=== PATIENT | male | born 1985 | race African-American/Black ===

== ENCOUNTER 2016-10-20 10:10 | Emergency (ER) | payer OTHER ==
[~2016-10-20] VITALS: Ht 180.3 cm; Wt 75.0 kg
[~2016-10-20 10:10] MED LIST: CYCL1TAB29 PO; DICL50TA3 PO
[2016-10-20 10:11] VITALS: BP 140/77; PULSE 82; RESP 20; TEMP 98.1; O2SAT 98
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
[2016-10-20] MEDS ORDERED: IBUP800T23 PO (11:50)
[2016-10-20] MEDS ORDERED: ORPH100T99 PO (11:50)
[2016-10-20] MEDS ORDERED: EXTR500C PO (11:50)
[2016-10-20 11:53] VITALS: BP 135/87
== END 2016-10-20 11:53 | disposition home or self-care (01) ==
LOC: NETRI 10:10
DX: S29.012A Strain of muscle and tendon of back wall of thorax, initial encounter (principal); V49.40XA Driver injured in collision with unspecified motor vehicles in traffic accident, initial encounter; Y92.488 Other paved roadways as the place of occurrence of the external cause
CPT/HCPCS: 99283

== ENCOUNTER 2017-09-20 16:08 | Emergency (ER) | payer SELFPAY ==
[~2017-09-20] VITALS: Ht 180.3 cm; Wt 70.0 kg
[~2017-09-20 16:08] MED LIST changes: -CYCL1TAB29 PO; -DICL50TA3 PO; +EXTR500C PO; +IBUP1TAB7 PO; +ORPH100T2 PO
[2017-09-20 16:25] VITALS: BP 111/63; PULSE 86; RESP 16; TEMP 98.4; O2SAT 98
[2017-09-20] MEDS ORDERED: CEPH-460 PO (17:02)
[2017-09-20] MEDS ORDERED: IBUP-232 PO (17:02)
--- NOTE | 2017-09-20 17:03 | PD ---
HPI Chief Complaint: Laceration/Skin Injury Time Seen by Provider: 16:54 Travel History International Travel<30 days: No Contact w/Intl Traveler<30days: No Traveled to known affect area: No History of Present Illness HPI 32 year old male presents to the emergency department for evaluation of a laceration to his right hand that occurred approximately 10 mins prior to arrival. Patient states he was using a knife when his dog scared him, causing him to cut his right medial volar hand. Patient states his tetanus immunization was 3-4 years ago. Current pain is 9/10, aching, without radiation. Moderate severity. PFSH Past Medical History Hx Anticoagulant Therapy: No Heart Rhythm Problems: Yes (IRREGULAR HEART BEAT) Cardiovascular Problems: No Chemotherapy: No Cerebrovascular Accident: No Diabetes: No Diminished Hearing: No Respiratory: Yes (CHRONIC BRONCHITIS) Past Surgical History Hysterectomy: No Social History Alcohol Use: Yes (SOCIALLY) Tobacco Use: Yes Substance Use: No Allergies-Medications (Allergen,Severity, Reaction): Coded Allergies: shellfish derived (Unverified Allergy, Severe, SWELLING SOB, 09/20/17) Reported Meds & Prescriptions Reported Meds & Active Scripts Active Keflex (Cephalexin) 500 Mg Capsule 500 Mg PO Q8H 7 Days Ibuprofen 600 Mg Tab 600 Mg PO TID PRN Review of Systems Except as stated in HPI: all other systems reviewed are Neg Physical Exam Narrative GENERAL: Well-nourished, well-developed male patient, afebrile. SKIN: Focused skin assessment warm/dry. Patient has a 3 cm laceration to the volar aspect of the right hand on the medial side. HEAD: Normocephalic. Atraumatic. EYES: No scleral icterus. No injection or drainage. NECK: Supple, trachea midline. No JVD or lymphadenopathy. CARDIOVASCULAR: Right radial pulse 2+. RESPIRATORY: No accessory muscle use. MUSCULOSKELETAL: No cyanosis, or edema. Patient has full flexion-extension of all digits of the right hand. Strength in all digits is 5/5. Data Data Last Documented VS Vital Signs Date Time Temp Pulse Resp B/P (MAP) Pulse Ox O2 Delivery O2 Flow Rate FiO2 09/20/17 16:25 98.4 86 16 111/63 (79) 98 Orders Orders Lidocaine 1% Inj (Xylocaine 1% Inj) (09/20/17 17:15) Ed Discharge Order (09/20/17 17:42) [facility] Medical Decision Making Medical Screen Exam Complete: Yes Emergency Medical Condition: Yes Medical Record Reviewed: Yes Differential Diagnosis Laceration versus abrasion versus tendon laceration Narrative Course 32-year-old male presents to the emergency department for evaluation of a laceration to the right hand that occurred just prior to arrival. Bleeding is controlled on exam. Patient is verbal consent for laceration repair. Patient is instructed on proper wound care. He'll be discharged with a prescription for ibuprofen and Keflex. The patient was discharged in stable condition with instructions, including return instructions and follow up instructions. Procedures Procedure Narrative LACERATION LOCATION: Right hand LENGTH: 3 cm NUMBER OF STITCHES/BRADLEY: 5 simple interrupted sutures REPAIR: The area of the laceration was prepped with Betadine and sterilely draped. The laceration was infiltrated with 1% lidocaine. The wound was copiously irrigated and explored without evidence of foreign body, tendon injury or neurovascular injury. The wound was closed using 4-0 Prolene. This was a single layer repair. A sterile dressing was applied. The patient was advised to keep the dressing clean and dry. Patient tolerated the procedure well. Diagnosis Primary Impression: Laceration of right hand Qualified Codes: S61.411A - Laceration without foreign body of right hand, initial encounter Referrals: Primary Care Physician call for appointment Patient Instructions: Care For Your Stitches (ED), General Instructions, Laceration (ED) Additional Instructions: Clean twice daily with soap and water and apply [id number] antibiotic ointment. Keep clean and dry. No swimming or hot tubs until laceration is healed. Take antibiotic as directed until gone. Take ibuprofen as instructed as needed with food for pain. Suture removal in 7-10 days. You may follow up with your primary care physician or return to the emergency department for this. Return to the emergency department for any acute worsening of symptoms. Med/Other Pt SpecificInfo: Prescription(s) given Scripts Cephalexin (Keflex) 500 Mg Capsule 500 MG PO Q8H for Infection for 7 Days, #21 CAP 0 Refills Prov: Esperanza Flor 09/20/17 Ibuprofen (Ibuprofen) 600 Mg Tab 600 MG PO TID Y for PAIN SCALE 1 TO 10, #21 TAB 0 Refills Prov: Esperanza Flor 09/20/17 Disposition: 01 DISCHARGE HOME Condition: Stable Esperanza Flor Sep 20, 2017 17:03
[2017-09-20] MEDS ORDERED: LIDOCAINE HCL 1% 20 ML VIAL INFIL ONE (17:15)
== END 2017-09-20 17:58 | disposition home or self-care (01) ==
LOC: NEPK 16:08
DX: S61.411A Laceration without foreign body of right hand, initial encounter (principal); W26.0XXA Contact with knife, initial encounter; Z72.0 Tobacco use; Z91.013 Allergy to seafood
CPT/HCPCS: 12002

== ENCOUNTER 2017-09-26 19:15 | Emergency (ER) | payer SELFPAY ==
[~2017-09-26 19:15] MED LIST changes: +CEPH-460 PO; -EXTR500C PO; +IBUP-232 PO; -IBUP1TAB7 PO; -ORPH100T2 PO
[2017-09-26 19:39] VITALS: BP 103/57; PULSE 78; RESP 16; TEMP 98.4; O2SAT 98
--- NOTE | 2017-09-26 21:20 | PD ---
HPI Chief Complaint: Laceration/Skin Injury Time Seen by Provider: 19:38 Travel History International Travel<30 days: No Contact w/Intl Traveler<30days: No Traveled to known affect area: No History of Present Illness HPI 32-year-old male presents emergency department for evaluation of a laceration in his right hand. Patient had sutures placed about a week ago. The wound has dehisced. Reports moderate pain at the site would like the wound repaired with sutures removed. No fever chills. No other symptoms to report. PFSH Past Medical History Hx Anticoagulant Therapy: No Heart Rhythm Problems: Yes (IRREGULAR HEART BEAT) Cardiovascular Problems: No Chemotherapy: No Cerebrovascular Accident: No Diabetes: No Diminished Hearing: No Respiratory: Yes (CHRONIC BRONCHITIS) Past Surgical History Hysterectomy: No Social History Alcohol Use: Yes (SOCIALLY) Tobacco Use: Yes Substance Use: No Allergies-Medications (Allergen,Severity, Reaction): Coded Allergies: shellfish derived (Unverified Allergy, Severe, SWELLING SOB, 09/30/17) Reported Meds & Prescriptions Reported Meds & Active Scripts Active Keflex (Cephalexin) 500 Mg Capsule 500 Mg PO Q8H 7 Days Ibuprofen 600 Mg Tab 600 Mg PO TID PRN Review of Systems Except as stated in HPI: all other systems reviewed are Neg Physical Exam Narrative This is a well-nourished male patient ambulatory with a nonantalgic gait. Patient has a 3 cm laceration on the dorsal aspect of the right hand. There are some sutures intact, others are torn. Mild erythema surrounding the site. He has regular heart rate. Even respirations. Moves all extremities without difficulty. Data Data Last Documented VS [facility] Medical Decision Making Medical Screen Exam Complete: Yes Emergency Medical Condition: Yes Medical Record Reviewed: Yes Differential Diagnosis Suture removal versus wound dehiscence versus infected wound versus healing wound Narrative Course 32-year-old male presents emergency department for evaluation wound in his right hand. Patient appears without distress. Exam is initiated in triage. Prior to bed placement, patient leaves AGAINST MEDICAL ADVICE. AMA: The risks of leaving against medical advice without further evaluation treatment were discussed with the patient. These risks include cardiac dysfunction, cardiac dysrhythmia, possible heart attack, possible stroke or . The patient indicated understanding of these risks and appeared to have the capacity to make this decision. Diagnosis Primary Impression: Encounter for wound re-check Disposition: AGAINST MEDICAL ADVICE Condition: Stable Ronit Landaverde Sep 26, 2017 21:20
== END 2017-09-26 21:15 | disposition left against medical advice (07) ==
LOC: NED 19:15
DX: Z00.00 Encounter for general adult medical examination without abnormal findings (principal)
CPT/HCPCS: 99281

== ENCOUNTER 2017-09-30 13:14 | Emergency (ER) | payer SELFPAY ==
[~2017-09-30] VITALS: Ht 180.3 cm; Wt 78.0 kg
[2017-09-30 14:42] VITALS: BP 115/56; PULSE 72; RESP 16; TEMP 98.4; O2SAT 99
[2017-09-30 14:51] VITALS: BP 122/63; PULSE 69; RESP 16; TEMP 98.4; O2SAT 98
--- NOTE | 2017-09-30 17:30 | PD ---
HPI Chief Complaint: Laceration/Skin Injury Time Seen by Provider: 17:20 Travel History International Travel<30 days: No Contact w/Intl Traveler<30days: No Traveled to known affect area: No History of Present Illness HPI 32-year-old -Japanese male previously seen for laceration to the right lateral palm, with sutures placed. Patient returned 3 days ago and had sutures removed. Since that time the wound has started to heal by secondary intention. Patient is here for reevaluation and possible closure, as he states when he works it breaks open and bleeds. Patient is allergic to shellfish. PFSH Past Medical History Hx Anticoagulant Therapy: No Heart Rhythm Problems: Yes (IRREGULAR HEART BEAT) Cardiovascular Problems: No Chemotherapy: No Cerebrovascular Accident: No Diabetes: No Diminished Hearing: No Respiratory: Yes (CHRONIC BRONCHITIS) Past Surgical History Hysterectomy: No Social History Alcohol Use: Yes (SOCIALLY) Tobacco Use: Yes Substance Use: No Allergies-Medications (Allergen,Severity, Reaction): Coded Allergies: shellfish derived (Unverified Allergy, Severe, SWELLING SOB, 09/30/17) Reported Meds & Prescriptions Reported Meds & Active Scripts Active Keflex (Cephalexin) 500 Mg Capsule 500 Mg PO Q8H 7 Days Ibuprofen 600 Mg Tab 600 Mg PO TID PRN Review of Systems Except as stated in HPI: all other systems reviewed are Neg General / Constitutional: No: Fever Eyes: No: Visual changes HENT: No: Headaches Cardiovascular: No: Chest Pain or Discomfort Respiratory: No: Shortness of Breath Gastrointestinal: No: Abdominal Pain Genitourinary: No: Dysuria Musculoskeletal: No: Pain Skin: No Rash Neurologic: No: Weakness Psychiatric: No: Depression Endocrine: No: Polydipsia Hematologic/Lymphatic: No: Easy Bruising Physical Exam Narrative GENERAL: Patient appears in no acute distress per SKIN: Warm and dry. Normal color. Normal turgor. Patient has a 2 cm dehisced laceration to the right lateral palm with no erythema or purulent drainage. The wound appears dry. MUSCULOSKELETAL: Extremities without clubbing, cyanosis, or edema. No obvious deformities. NEUROLOGICAL: Awake and alert. No obvious cranial nerve deficits. Motor grossly within normal limits. Five out of 5 muscle strength in the arms and legs. Normal speech. Data Data Last Documented VS Vital Signs Date Time Temp Pulse Resp B/P (MAP) Pulse Ox O2 Delivery O2 Flow Rate FiO2 09/30/17 14:51 98.4 69 16 122/63 82 98 MDM Medical Decision Making Medical Screen Exam Complete: Yes Emergency Medical Condition: Yes Medical Record Reviewed: Yes Differential Diagnosis Laceration right palm. Wound check. Wound dehiscence Narrative Course I explained to the patient and his girlfriend, that the wound has to heal by secondary intention at this time. There is no sign of infection, or need for further medical treatment other than keeping it protected and allowing to heal. Both the patient and his girlfriend became upset and chose to leave without further medical treatment. Disposition: 07 AGAINST MEDICAL ADVICE Condition: Stable Richardson Galvan Sep 30, 2017 17:30
== END 2017-09-30 17:33 | disposition left against medical advice (07) ==
LOC: NEPD 13:14
DX: S61.411D Laceration without foreign body of right hand, subsequent encounter (principal); W45.8XXD Other foreign body or object entering through skin, subsequent encounter; Z53.20 Procedure and treatment not carried out because of patient's decision for unspecified reasons
CPT/HCPCS: 99281